=== PATIENT | female | born 1965 | race Caucasian/White ===

== ENCOUNTER 2016-06-21 13:31 | Emergency (ER) | payer OTHER ==
[2016-06-21 15:05] VITALS: BP 125/75
--- NOTE | 2016-06-21 15:47 | UC ---
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 - lifting denies trauma hx of pain in her left shoulder in the past - went to PT with relief took some ibuprofen yesterday, icepack and tylenol without much relief - History of Current Complaint Chief Complaint: UCUpperExtremity Stated Complaint: SHOULDER /ARM PAIN Time Seen by Provider: 06/21/16 15:37 Hx Obtained From: Patient Hx Last Menstrual Period: June 05, 2016 - Allergies/Home Medications Allergies/Adverse Reactions: Allergies Allergy/AdvReac Type Severity Reaction Status Date / Time No Known Allergies Allergy Verified 11/07/12 09:47 Home Medications: Home Medications Ibuprofen [Advil] 600 mg PO 06/21/16 [History] PMH/Surg Hx/FS Hx/Imm Hx Previously Healthy: Yes Endocrine History Of: Reports: Thyroid Disease - HYPOTHYROID Denies: Diabetes Cardiovascular History Of: Denies: Cardiac Disorders, Hypertension Respiratory History Of: Reports: Asthma - PAST Denies: COPD GI/ History Of: Denies: Ulcer Cancer History Of: Denies: Breast Cancer - Surgical History Surgical History: None - Family History Known Family History: Negative: Cardiac Disease, Hypertension, Diabetes - Social History Occupation: Employed Full-time Lives: With Family Alcohol Use: None Substance Use Type: None Smoking Status (MU): Never Smoked Tobacco Review Of Systems Constitutional: Positive: Negative Skin: Positive: Negative Eyes: Positive: Negative ENT: Positive: Negative Respiratory: Positive: Negative Cardiovascular: Positive: Negative Gastrointestinal: Positive: Negative Genitourinary: Positive: Negative Musculoskeletal: Positive: Negative Neurological: Positive: Negative Psychological: Positive: Negative All Other Systems Reviewed And Are Negative: Yes Physical Exam Triage Information Reviewed: Yes Appearance: No Pain Distress, Well-Nourished Vital Signs: Initial Vital Signs Temp 98.0 F 06/21/16 14:56 Pulse 77 06/21/16 14:56 Resp 16 06/21/16 14:56 BP 125/75 06/21/16 14:56 Pulse Ox 98 06/21/16 14:56 Vital Signs Reviewed: Yes Eyes: Positive: Conjunctiva Clear ENT: Positive: Pharynx normal, TMs normal Neck: Positive: Other: - no cspine tenderness Respiratory: Positive: Lungs clear, Normal breath sounds, No respiratory distress Cardiovascular: Positive: RRR, No Murmur, Pulses Normal, Brisk Capillary Refill Abdomen Description: Positive: Nontender, Soft Bowel Sounds: Positive: Present Musculoskeletal: Positive: Other: - Neck has no noted deformities or signs of inflammation. Curvature of cervical spine within normal limits. Spinous processes of cervical spine palpable, midline, and non-tender, No step-offs, Flexion, extension, and [id number] rotation of cervical spine causes no discomfort Spine have no noted deformities or signs of inflammation. Curvature of thoracic, and lumbar spine are within normal limits. . Spinous processes of T1-L5 palpable, midline, and non-tender; No step-offs. upper Back muscles paraspinal tenderness left side . Neurological Exam: Normal Psychological Exam: Normal Skin Exam: Normal Neck Pain Course/Dx - Course Course Of Treatment: exam completed- reproducible upper back pain. will treat for musculoskeletal pain with muscle relaxer, NSIADS and PT. no associated symptoms to indicate any cardiac etiology - Differential Dx/Diagnosis Differential Dx/HQI/PQRI: Sprain, Strain Provider Diagnoses: upper back pain ,left shoulder pain Discharge - Discharge Plan Condition: Stable Disposition: HOME Prescriptions: Cyclobenzaprine TAB* [Flexeril 10 MG TAB*] 10 mg PO BEDTIME #5 tab Ibuprofen TAB* [Motrin TAB* 800 MG] 800 mg PO TID #30 tab Patient Education Materials: Musculoskeletal Pain (ED), Cervical Radiculopathy (ED) Referrals: Kevin Baker MD [Primary Care Provider] - Additional Instructions: Start flexeril as directed. Do not drink alcohol or drive while taking flexeril. Do not take sertraline for 5 days Please call physical therapy for further evaluation and treatment. Take ibuprofen for fever or pain. Increase fluids and rest. Please review your discharge instructions. If your symptoms do not improve please call your primary care provider or return to urgent care.
== END 2016-06-21 16:17 | disposition home or self-care (01) ==
LOC: UCEAST 13:31
DX: M54.6 Pain in thoracic spine (principal); M25.512 Pain in left shoulder; E03.9 Hypothyroidism, unspecified
CPT/HCPCS: 99212; G0463